=== PATIENT | female | born 1955 | race Two or more races ===

== ENCOUNTER 2017-08-09 10:50 | Emergency (ER) | payer OTHER ==
[~2017-08-09] VITALS: Ht 162.6 cm; Wt 65.8 kg
[2017-08-09] MEDS ORDERED: LIPITOR20 MG (11:38)
== END 2017-08-09 13:45 | disposition home or self-care (01) ==
LOC: ER 10:50
DX: S20.02XA Contusion of left breast, initial encounter (principal); W16.012A Fall into swimming pool striking water surface causing other injury, initial encounter; Y93.89 Activity, other specified; Y92.095 Swimming-pool of other non-institutional residence as the place of occurrence of the external cause; Y99.8 Other external cause status

== ENCOUNTER → 2019-01-20 | Outpatient (CLI) | payer OTHER ==
[~2019-01-20] MED LIST: LIPITOR20 MG
== END | disposition home or self-care (01) ==
LOC: SONOGRAMA 09:39 → MAMO-SONO 09:45
DX: E04.1 Nontoxic single thyroid nodule (principal)

== ENCOUNTER 2020-03-17 10:54 | Emergency (ER) | payer OTHER ==
[~2020-03-17] VITALS: Ht 162.6 cm; Wt 67.1 kg
== END 2020-03-17 18:23 | disposition home or self-care (01) ==
LOC: ER 10:54
DX: R10.30 Lower abdominal pain, unspecified (principal)

== ENCOUNTER 2020-04-22 09:27 | Outpatient (CLI) | payer OTHER | END 2020-04-22 09:28 | disposition home or self-care (01) | LOC: RAD 09:27 | DX: G95.89 Other specified diseases of spinal cord (principal); M25.562 Pain in left knee; M25.561 Pain in right knee; M79.642 Pain in left hand; M79.641 Pain in right hand ==

== ENCOUNTER → 2020-11-28 | Outpatient (CLI) | payer OTHER | END | disposition home or self-care (01) | LOC: RAD 12:53 | DX: R07.89 Other chest pain (principal) ==